=== PATIENT | male | born 1955 | race Caucasian/White ===

== ENCOUNTER 2017-10-26 21:37 | Emergency (ER) | payer MEDICAID ==
[2016-06-08 09:00] VITALS: BMI 24.4
[~2017-10-26 21:37] MED LIST: ASPIRIN325 MG PO; ASPIRIN81 MG; CARAFATE1 G/10 ML PO; HYDROCODON-ACE1 EAC7 PO; K-DUR20 MEQ PO; LOPRESSOR25 MG PO; NITRO-DUR0.4 MG TD; PRINIVIL20 MG PO; PROTONIX40 MG PO
[2017-10-26 22:52] LABS: BASOPHILS 0.4 % (0-2); EOSINOPHILS 3.8 % (0-7); HEMATOCRIT 44.2 % (42.0-54.0); IMMATURE GRANULOCYTES 0.4 % (0-5); LYMPHOCYTES 13.3 % (15-50); MCH 31.8 pg (26.0-34.0); MCHC 33.9 g/dL (31.0-37.0); MCV 93.8 fL (80.0-100.0); MEAN PLATELET VOLUME 10.2 fL (7.4-10.4); MONOCYTES 5.6 % (2-11); NEUTROPHILS 76.5 % (40-80); RBC 4.71 10x6/uL (4.20-6.10); RDW 13.1 % (11.5-14.5); WBC 7.8 10x3/uL (4.8-10.8)
[2017-10-26 22:56] LABS: PLATELET COUNT 179 10x3/uL (130-400)
[2017-10-26 23:03] LABS: CALC OSMOLALITY 274 mosm/kg (275-300); CALCIUM 8.2 mg/dL (8.5-10.1); CARBON DIOXIDE 25.4 mmol/L (21.0-32.0); CHLORIDE - SERUM 101 mmol/L (98-107); CREATININE - SERUM 0.9 mg/dL (0.6-1.3); GLUCOSE 107 mg/dL (74-106); POTASSIUM - SERUM 3.8 mmol/L (3.5-5.1); SODIUM 137 mmol/L (136-145); UREA NITROGEN 14 mg/dL (7-18); eGFR NON AFRICAN AMERICAN > 90 mL/min (90-120)
== END 2017-10-27 00:18 | disposition home or self-care (01) ==
LOC: D.ER 21:37
PROVIDERS: Emergency Medicine
DX: S00.03XA Contusion of scalp, initial encounter (principal); W08.XXXA Fall from other furniture, initial encounter; Y93.89 Activity, other specified; Y92.89 Other specified places as the place of occurrence of the external cause; F10.129 Alcohol abuse with intoxication, unspecified; S06.0X1A Concussion with loss of consciousness of 30 minutes or less, initial encounter; I10 Essential (primary) hypertension

== ENCOUNTER → 2019-01-15 13:01 | Outpatient (CLI) | payer MEDICAID ==
[2016-06-08 09:00] VITALS: BMI 24.4
== END | disposition home or self-care (01) ==
LOC: D.HCCARDIO 13:01
PROVIDERS: ATTEND Internal Medicine Cardiovascular Disease
DX: I25.10 Atherosclerotic heart disease of native coronary artery without angina pectoris (principal)